=== PATIENT | female | born 1985 | race Caucasian/White ===

== ENCOUNTER 2019-07-07 10:42 | Emergency (ER) | payer BC ==
[2019-07-07 11:50] LABS: ANION GAP 11.9; CHLORIDE,CL 105 mmol/L (101-111); SODIUM,NA 138 mmol/L (135-145)
--- NOTE | 2019-07-07 12:07 | EDM.PDOC ---
Scribed by Lea Landa 07/07/19 1207 for Camilo Robles MD ED HPI GENERAL MEDICAL PROBLEM - General Chief Complaint: Cardiovascular Problem Stated Complaint: HIGH BP Time Seen by Provider: 07/07/19 11:03 Source of Information: Reports: Patient, RN, RN Notes Reviewed History Limitations: Reports: No Limitations - History of Present Illness INITIAL COMMENTS - FREE TEXT/NARRATIVE: Patient presents to ER by POV stating she has chest heaviness and burning and at times heart is racing. She has history of elevated blood pressure. 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 Onset Date: 07/06/19 Duration: Constant Location: Reports: Generalized Quality: Reports: Ache Severity: Mild Improves with: Reports: None Worsens with: Reports: None Associated Symptoms: Reports: No Other Symptoms - Related Data Allergies Allergy/AdvReac Type Severity Reaction Status Date / Time Sulfa (Sulfonamide Allergy Hives Verified 07/07/19 10:50 Antibiotics) Home Meds: Home Meds . [No Known Home Meds] 07/07/19 [History] ED ROS GENERAL - Review of Systems Review Of Systems: Comprehensive ROS is negative, except as noted in HPI. ED EXAM, GENERAL - Physical Exam Exam: See Below Exam Limited By: No Limitations General Appearance: Alert, WD/WN, No Apparent Distress Eye Exam: Bilateral Eye: Normal Inspection Nose: Normal Inspection, Normal Mucosa, No Blood Throat/Mouth: Normal Inspection, Normal Lips, Normal Voice, No Airway Compromise Head: Atraumatic, Normocephalic Neck: Normal Inspection, Supple, Non-Tender, Full Range of Motion Respiratory/Chest: No Respiratory Distress, Lungs Clear, Normal Breath Sounds, No Accessory Muscle Use, Chest Non-Tender Cardiovascular: Normal Peripheral Pulses, Regular Rate, Rhythm, No Edema, No Gallop, No JVD, No Murmur, No Rub, Tachycardia GI/Abdominal: Normal Bowel Sounds, Soft, Non-Tender, No Organomegaly, No Distention, No Abnormal Bruit, No Mass (Female) Exam: Deferred Rectal (Female) Exam: Deferred Back Exam: Normal Inspection, Full Range of Motion, NT Extremities: Normal Inspection, Normal Range of Motion, Non-Tender, Normal Capillary Refill, No Pedal Edema Neurological: Alert, Oriented, CN II-XII Intact, Normal Cognition, Normal Gait, No Motor/Sensory Deficits Psychiatric: Normal Affect, Anxious Skin Exam: Warm, Dry, Intact, Normal Color, No Rash EKG INTERPRETATION EKG Date: 07/07/19 Time: 11:23 Rhythm: Other (sinus tachycardia) Rate (Beats/Min): 101 [place]: Normal P-Wave: Present QRS: Normal ST-T: Other (nonspecific T abnormality, anterior leads.) QT: Normal Comparison: NA - No Prior EKG Course - Vital Signs Last Recorded V/S: Last Vital Signs Temp 98.7 F 07/07/19 10:52 Pulse 120 H 07/07/19 10:52 Resp 16 07/07/19 10:52 BP 153/90 H 07/07/19 10:52 Pulse Ox 100 07/07/19 10:52 - Orders/Labs/Meds Orders: Active Orders 24 hr Category Date Time Status EKG 12 Lead [EKG Documentation Completion] [RC] STAT Care 07/07/19 11:09 Active CULTURE URINE [RM] Stat Lab 07/07/19 11:11 Received Labs: Laboratory Tests 07/07/19 07/07/19 07/07/19 Range/Units 11:11 11:19 11:19 WBC 7.9 (5.0-10.0) 10^3/uL RBC 4.84 (4.2-5.4) 10^6/uL Hgb 14.6 (12.0-16.0) g/dL Hct 42.8 (37.0-47.0) % MCV 88.4 (80-100) fL MCH 30.2 (27.0-34.0) pg MCHC 34.1 (33.0-35.0) g/dL Plt Count 279 (150-450) 10^3/uL Neut % (Auto) 72.8 (42.2-75.2) % Lymph % (Auto) 19.4 L (20.5-50.1) % [place] % (Auto) 6.4 (2-8) % Eos % (Auto) 1.3 (1.0-3.0) % Baso % (Auto) 0.1 (0.0-1.0) % Sodium 138 (135-145) mmol/L Potassium 3.9 (3.6-5.0) mmol/L Chloride 105 (101-111) mmol/L Carbon Dioxide 25.0 (21.0-31.0) mmol/L Anion Gap 11.9 BUN 8 (7-18) mg/dL Creatinine 0.7 (0.6-1.3) mg/dL Est Cr Clr Drug Dosing 108.01 mL/min Estimated GFR (MDRD) > 60 BUN/Creatinine Ratio 11.42 Glucose 107 H (74-105) mg/dL Calcium 9.8 (8.4-10.2) mg/dl Total Bilirubin 0.5 (0.2-1.0) mg/dL AST 19 (10-42) IU/L ALT 16 (10-60) IU/L Alkaline Phosphatase 56 (42-121) IU/L Troponin I < 0.02 (0.00-0.02) ng/ml Total Protein 7.6 (6.7-8.2) g/dl Albumin 4.2 (3.2-5.5) g/dl Globulin 3.4 Albumin/Globulin Ratio 1.24 Urine Color Yellow (YELLOW) Urine Appearance Clear (CLEAR) Urine pH 7.5 (5.0-9.0) Ur Specific [place] 1.015 (1.005-1.030) Urine Protein Negative (NEGATIVE) Urine Glucose (UA) Negative (NEGATIVE) Urine Ketones Negative (NEGATIVE) Urine Occult Blood Trace-lysed H (NEGATIVE) Urine Nitrite Negative (NEGATIVE) Urine Bilirubin Negative (NEGATIVE) Urine Urobilinogen 0.2 (0.2-1.0) mg/dL Ur Leukocyte Esterase Small H (NEGATIVE) Urine RBC 0-5 /HPF Urine WBC 5-10 H (0-5/HPF) /HPF Ur Epithelial Cells Many H (NOT SEEN) /HPF Urine Bacteria Few (0-FEW/HPF) /HPF Departure - Departure Time of Disposition: 12:05 Disposition: Home, Self-Care 01 Condition: Good Clinical Impression: Elevated blood pressure affecting in first trimester, antepartum, Bacterial vaginosis in Instructions: Hypertension During , [id number], Bacterial Vaginosis , [id number] Forms: ED Department Discharge Additional Instructions: Rx: Flagyl (Metronidazole 500mg Follow up in clinic for blood pressure recheck. Sepsis Event Note - Evaluation Sepsis Screening Result: No Definite Risk - Focused Exam Vital Signs: Vital Signs Temp Pulse Resp BP Pulse Ox 07/07/19 10:52 98.7 F 120 H 16 153/90 H 100 Date Exam was Performed: 07/07/19 Time Exam was Performed: 12:04 - My Orders Last 24 Hours: My Active Orders 07/07/19 11:09 EKG 12 Lead [EKG Documentation Completion] [RC] STAT 07/07/19 11:11 CULTURE URINE [RM] Stat - Assessment/Plan Last 24 Hours: My Active Orders 07/07/19 11:09 EKG 12 Lead [EKG Documentation Completion] [RC] STAT 07/07/19 11:11 CULTURE URINE [RM] Stat I have read and agree with the documentation that has been completed regarding this visit. By signing this record, I attest that the documentation was completed in my physical presence and is an accurate record of the encounter.
== END 2019-07-07 12:12 | disposition home or self-care (01) ==
LOC: DL.ED 10:42
DX: O13.1 Gestational [pregnancy-induced] hypertension without significant proteinuria, first trimester (principal); O23.591 Infection of other part of genital tract in pregnancy, first trimester; B96.89 Other specified bacterial agents as the cause of diseases classified elsewhere; Z3A.01 Less than 8 weeks gestation of pregnancy; Z88.2 Allergy status to sulfonamides
CPT/HCPCS: 36415; 80053; 81001; 84484; 85025; 87086; 93005; 99285-25

== ENCOUNTER 2020-02-13 07:38 | Inpatient (IN) | payer BC ==
[~2020-02-13 07:38] MED LIST: Acetaminophen 325 MG Tab PO PRN; Oxytocin/Normal Saline 30 UNIT/500 ML BAG IV SCH; Sodium Chloride 0.9% 10 ML Syringe FLUSH PRN
[2020-02-13] MEDS: Misoprostol 25 MCG (1/4 of 100 MCG) Tab VAG PRN ×2 (09:05→13:10)
--- NOTE | 2020-02-13 16:36 | PCM.LDHP ---
L&D History of Present Illness - General Date of Service: 02/13/20 Admit Problem/Dx: Patient Status Order with Admit Dx/Problem 02/12/20 13:32 Patient Status [ADT] Routine Admission Diagnosis/Problem Admission Diagnosis/Problem Gestational hypertension - History of Present Illness Introduction:: Patient is a at 37w0d who presents to L&D for induction of labor secondary to gestational hypertension. She has been on labetalol 300 mg BID and was just increased to an additional dose of 200 mg midday. She has otherwise had an uncomplicated . She is GBS negative. She had good care. She denies contractions, vaginal discharge, leakage of fluids, or vaginal bleeding. Baby has been active. 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: Musculoskeletal History: Reports: None Neurological History: Reports: None Psychiatric History: Reports: None Endocrine/Metabolic History: Reports: None Hematologic History: Reports: None Immunologic History: Reports: None Oncologic (Cancer) History: Reports: None Dermatologic History: Reports: None - Infectious Disease History Infectious Disease History: Reports: None - Past Surgical History Head Surgeries/Procedures: Reports: None Social & Family History - Family History Family Medical History: Noncontributory - Tobacco Use Smoking Status *Q: Never Smoker Second Hand Smoke Exposure: Yes - Caffeine Use Caffeine Use: Reports: Coffee, Soda - Recreational Drug Use Recreational Drug Use: No H&P Review of Systems - Review of Systems: Review Of Systems: See Below General: Denies: Fever, Chills, Weakness HEENT: Denies: Headaches, Visual Changes Pulmonary: Denies: Shortness of Breath, Cough Cardiovascular: Denies: Chest Pain, Palpitations, Edema, Lightheadedness Gastrointestinal: Denies: Abdominal Pain, Constipation, Diarrhea, Nausea, Vomiting Skin: Denies: Rash Neurological: Denies: Dizziness, Headache, Numbness, Weakness L&D Exam - Exam Exam: See Below - Vital Signs Vital Signs: Last Vital Signs Temp 97.8 F 02/13/20 12:29 Pulse 79 02/13/20 13:30 Resp 18 02/13/20 12:29 BP 140/78 02/13/20 13:30 Pulse Ox Weight: 245 lb - OB Specific Contraction Duration (sec): 40-60 Contraction Frequency (min): 3-5 Contraction Intensity: Mild Movement: Active Heart Tones: Present Heart Tones per Min: 145 Heart Rate (FHR) Variability: Moderate (6-25 bmp) Presentation: Vertex - Ceballos Score Ceballos Score Cervix Position: Posterior Ceballos Score Consistency: Firm Ceballos Score Effacement: 31-50% Ceballos Score Dilation: 1-2 cm Ceballos Score 's Station: -3 Ceballos Score Total: 2 - Exam General: Alert, Oriented, Cooperative HEENT: Conjunctiva Clear, Mucosa Moist & [place], Pupils Equal Neck: Supple, Trachea Midline Lungs: Clear to Auscultation, Normal Respiratory Effort Cardiovascular: Regular Rate, Regular Rhythm, Normal S1, Normal S2 GI/Abdominal Exam: Normal Bowel Sounds, Soft, Non-Tender Extremities: Non-Tender, No Pedal Edema Skin: Warm, Dry, Intact Neurological: Reflexes Equal Bilateral. No: Focal Deficit - Patient Data Lab Results Last 24 hrs: Laboratory Results - last 24 hr 02/13/20 02/13/20 02/13/20 Range/Units 07:45 08:20 08:20 WBC 9.7 (5.0-10.0) 10^3/uL RBC 4.33 (4.2-5.4) 10^6/uL Hgb 13.2 (12.0-16.0) g/dL Hct 39.0 (37.0-47.0) % MCV 90.1 (80-100) fL MCH 30.5 (27.0-34.0) pg MCHC 33.8 (33.0-35.0) g/dL Plt Count 182 D (150-450) 10^3/uL BUN 9 (7-18) mg/dL Creatinine 0.57 (0.55-1.02) mg/dL Est Cr Clr Drug Dosing 132.64 mL/min Estimated GFR (MDRD) > 60 Uric Acid 4.6 (2.6-6.0) mg/dL AST 25 (15-37) U/L ALT 40 (14-59) U/L Lactate Dehydrogenase 147 (81-234) U/L Urine Color (YELLOW) Urine Appearance (CLEAR) Urine pH (5.0-9.0) Ur Specific [place] (1.005-1.030) Urine Protein (NEGATIVE) Urine Glucose (UA) (NEGATIVE) Urine Ketones (NEGATIVE) Urine Occult Blood (NEGATIVE) Urine Nitrite (NEGATIVE) Urine Bilirubin (NEGATIVE) Urine Urobilinogen (0.2-1.0) mg/dL Ur Leukocyte Esterase (NEGATIVE) Ur Random Creatinine (No establ ref range) mg/dL U Random Total Protein (0.0-11.9) mg/dL Protein/Creatinin Ratio COVID-19 (OVIDIO) Negative (NEGATIVE) 02/13/20 02/13/20 Range/Units 08:56 08:56 WBC (5.0-10.0) 10^3/uL RBC (4.2-5.4) 10^6/uL Hgb (12.0-16.0) g/dL Hct (37.0-47.0) % MCV (80-100) fL MCH (27.0-34.0) pg MCHC (33.0-35.0) g/dL Plt Count (150-450) 10^3/uL BUN (7-18) mg/dL Creatinine (0.55-1.02) mg/dL Est Cr Clr Drug Dosing mL/min Estimated GFR (MDRD) Uric Acid (2.6-6.0) mg/dL AST (15-37) U/L ALT (14-59) U/L Lactate Dehydrogenase (81-234) U/L Urine Color Yellow (YELLOW) Urine Appearance Clear (CLEAR) Urine pH 6.5 (5.0-9.0) Ur Specific [place] 1.015 (1.005-1.030) Urine Protein Negative (NEGATIVE) Urine Glucose (UA) Negative (NEGATIVE) Urine Ketones Negative (NEGATIVE) Urine Occult Blood Negative (NEGATIVE) Urine Nitrite Negative (NEGATIVE) Urine Bilirubin Negative (NEGATIVE) Urine Urobilinogen 0.2 (0.2-1.0) mg/dL Ur Leukocyte Esterase Negative (NEGATIVE) Ur Random Creatinine 26.00 (No establ ref range) mg/dL U Random Total Protein < 6.0 (0.0-11.9) mg/dL Protein/Creatinin Ratio TNP COVID-19 (OVIDIO) (NEGATIVE) Result Diagrams: 02/13/20 08:20 02/13/20 08:20 - Problem List (1) Gestational hypertension SNOMED Code(s): 395869719 ICD Code: O13.9 - GESTATIONAL HTN W/O SIGNIFICANT PROTEINURIA, UNSP TRIMESTER Status: Acute Current Visit: Yes (2) Primiparity SNOMED Code(s): 25320705 ICD Code: Z34.00 - ENCNTR FOR SUPRVSN OF NORMAL FIRST , UNSP TRIMESTER Status: Acute Current Visit: Yes (3) Rubella non-immune status, antepartum SNOMED Code(s): 241057594 ICD Code: O99.89 - OTH DISEASES AND CONDITIONS COMPL PREG/CHLDBRTH; Z28.3 - UNDERIMMUNIZATION STATUS Status: Acute Current Visit: Yes Problem List Initiated/Reviewed/Updated: Yes Orders Last 24hrs: Active Orders 24 hr Category Date Time Status Regular Diet [DIET] Diet 02/13/20 Lunch Active Medication Orders Acetaminophen (Tylenol) 650 mg PO Q4H PRN PRN Reason: Pain/Fever Lactated Ringer's (Ringers, Lactated) 1,000 mls @ 999 mls/hr IV ASDIRECTED ALBERT Oxytocin/Sodium Chloride (Pitocin In Ns 30 Unit/500 Ml) 30 unit in 500 mls @ 2 mls/hr IV TITRATE ALBERT; Protocol Misoprostol (Cytotec) 25 mcg VAG Q4H PRN PRN Reason: cervical ripening Last Admin: 02/13/20 13:10 Dose: 25 mcg Documented by: Admin: 02/13/20 09:05 Dose: 25 mcg Documented by: DANYELL Sodium Chloride (Saline Flush) 10 ml FLUSH ASDIRECTED PRN PRN Reason: Keep Vein Open Assessment/Plan Comment:: Patient is being induced secondary to gestational hypertension. Ceballos score is 2. Risks/benefits of Cytotec induction discussed with patient. Verbal consent for Cytotec has been obtained. Patient does plan on having an intrathecal. She is GBS negative. Will start pitocin when appropriate. Intrathecal when making good cervical change. Patient in agreement with plan and updated at bedside. Ashley Thomas MD
[2020-02-13] MEDS: Lactated Ringers 1,000 ML IV SCH ×2 (18:04→22:55)
[2020-02-13] MEDS ORDERED: diphenhydrAMINE 50 MG/ML SDV IVPUSH PRN (22:44)
[2020-02-13] MEDS ORDERED: Citric Acid/Sodium Citrate Solution 30 ML Cup PO ONE (22:44)
[2020-02-13] MEDS ORDERED: ceFAZolin 2 GM in Premix Bag 1 BAG IV ONE (22:44)
[2020-02-13] MEDS ORDERED: Acetaminophen/oxyCODONE 325-5 MG Tab PO PRN (22:44)
[2020-02-13] MEDS ORDERED: Naloxone 2 MG/2 ML Syringe IVPUSH PRN (22:44)
[2020-02-13] MEDS ORDERED: Misoprostol 400 MCG (4 X 100 MCG TAB) RECTAL PRN (22:44)
[2020-02-13] MEDS ORDERED: Carboprost Tromethamine 250 MCG/1 ML Amp IM PRN (22:44)
[2020-02-13] MEDS ORDERED: ePHEDrine 50 MG/ML SDV IVPUSH PRN (22:44)
[2020-02-13] MEDS ORDERED: Measles, Mumps & Rubella Vaccine 0.5 ML SDV SUBCUT ONE (22:44)
[2020-02-13] MEDS ORDERED: Methylergonovine 0.2 MG/1 ML Amp IM PRN (22:44)
[2020-02-13] MEDS ORDERED: Ondansetron 4 MG/2 ML SDV IVPUSH PRN (22:44)
[2020-02-13] MEDS ORDERED: Tranexamic Acid 1,000 MG in Sodium Chloride 0.9% 100 ML IV PRN (22:44)
[2020-02-13] MEDS ORDERED: Oxytocin/Normal Saline 30 UNIT/500 ML BAG IV SCH (22:45)
[2020-02-13] MEDS ORDERED: Oxytocin/Normal Saline 60 UNIT/1,000 ML BAG ONE (22:55)
[2020-02-13] MEDS ORDERED: Lactated Ringers 1,000 ML IV ONE (23:30)
[2020-02-13] MEDS ORDERED: Morphine PF 1 MG/ML Amp IVPUSH ONE (23:30)
[2020-02-14] MEDS ORDERED: Ketorolac 30 MG/ML SDV IVPUSH ONE
--- NOTE | 2020-02-14 00:20 | CONS ---
SERVICE DATE: 02/13/2020 REQUESTING PHYSICIAN: Ashley Thomas, PGY-3 . REASON FOR CONSULTATION: How do I further evaluate and manage this patient with concerns with status, specifically recurrent late decelerations despite stopping Pitocin and doing other interventions? PATIENT IDENTIFICATION: Shalonda Salamanca is a 34-year-old, -0-1-0 intrauterine at 37 weeks, confirmed by 9-2/7-week ultrasound, with gestational hypertension, requiring 800 mg of labetalol per day for control, who was started on induction earlier this morning with Cytotec x2, as well as started on Pitocin thereafter, following status closely. 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 She was followed closely. When 3rd dose of Cytotec was due she did have some concerns with too many contractions over a time period and was followed closely. There was noted to be occasional late deceleration with variability that was concerning, but then did improve. She was subsequently started on Pitocin and thereafter was followed closely and had notable recurrent late decelerations with minimal variability. Pitocin was subsequently stopped. Boluses were given. Positional changes ensued and despite this, positive contraction stress test was noted. Please see previous dictation. Because of this, with concerns of nonreassuring status, positive contraction stress test, minimal variability, shared decision was made to proceed with primary low-transverse section. Records called for, reviewed as below, and supplemented by patient history. ALLERGIES: Sulfa. MEDICATIONS: 1. Labetalol 300 mg in the morning, 200 mg at noon time, and 300 mg in the evening. 2. vitamins daily. PAST MEDICAL/PAST SURGICAL HISTORY: The patient denies any previous surgeries, hospitalizations overnight. She may have suspected chronic hypertension based on review of her chart and has been followed closely. FAMILY HISTORY: Breast cancer in maternal grandmother, diabetes in mother, father, and paternal grandfather. Heart disease in her father. Hypertension in mother and father. Liver disease in mother, fatty liver. Mother had hysterectomy secondary to uterine fibroids. Father with stroke. Maternal grandfather is unknown to the patient, and paternal grandmother in her 60s had uterine cancer. Negative family history of colon cancer, ovarian cancer, anesthesia problems, or bleeding problems. SOCIAL HISTORY: The patient lives in [place] with her , Darren. They have a dog at home. 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 She denies any alcohol, tobacco, or drug use. ANTEPARTUM LABS: ABO blood type is O positive, negative antibody, rubella nonimmune, syphilis antibody is nonreactive, negative hepatitis B surface antigen. Negative HIV, GC, chlamydia. Wet prep within normal limits. One-hour GTT was 104 on 12/12/2019 and GBS was negative on 01/30/2020. REVIEW OF SYSTEMS: Quickly obtained and is otherwise notable for having contractions with her induction. Otherwise, she denies any headaches, visual changes, or upper abdominal pain currently, or other signs and symptoms of severe preeclampsia. OBJECTIVE: Vital Signs: One blood pressure at 2130 was 123/72, heart rate 68, temperature 98.3. Appearance: Female, appears stated age, acting appropriate, nontoxic appearance. HEENT: Head is atraumatic. EOMs intact. PERRLA. No scleral icterus. No sore throat. Mucous membranes are moist. Neck: No obvious tenderness. Lungs: Clear to auscultation bilaterally. No increased work of breathing. Heart: S1, S2. Regular rate and rhythm. Abdomen: Gravid. Dillon's indeterminate. Nontender, nondistended. Bowel sounds positive. No organomegaly, pulsatile masses, or hernias. No rebound, rigidity, or guarding. Genitourinary and Rectal: Deferred. Extremities: Trace pedal edema. Deep tendon reflexes 2/4 bilaterally and symmetric in lower extremities. Psychiatric: Mood and affect congruent. Judgment and insight intact. Skin: No cyanosis, clubbing, or jaundice. heart tones with minimal variability with some late decelerations at current time of dictation, with heart tone baseline around the 140s. Tocometer reveals contractions every 1-1/2 to 3 minutes. Pitocin has been stopped. Position changes ensued and boluses have been given. INVESTIGATIONS: Earlier this morning white cell count 9.7, hemoglobin 13.2, platelets 182. HELLP labs essentially within normal limits. Urine protein to creatinine ratio was unable to determine due to the low amount of protein in her urine. Rapid COVID test was negative. Pending is a type and screen. ASSESSMENT AND PLAN: 1. Intrauterine at 37 weeks, confirmed with 9-/7-week ultrasound. 2. Nonreassuring status as evidenced by minimal variability, positive contraction stress test despite multiple interventions. 3. Positive contraction stress test. 4. Gestational hypertension, on medications, currently controlled. 5. Status post Cytotec x2 and attempts for Pitocin augmentation which now have been stopped. 6. Rubella nonimmune. 7. Group B Streptococcus negative. 8. G2, P0-0-1-0. PLAN: I did discuss with patient as well as Dr. Thomas and patient's male partner concerns of status, shared decision was made to proceed with primary low-transverse section. Did discuss with them risks, benefits, alternatives, and complications of which include, but not limited to infection; bleeding; damage to internal organs such as bowel, bladder, tubes, uterus, ovaries, and sometimes fetus; rarely needing a blood transfusion or further surgery; and even rare maternal or . She understands, agrees, and wishes to proceed. Verbal and written consents were obtained and questions were answered. We will proceed to the OR as soon as crew is ready and available. Dr. Thomas, thank you for allowing me to partake in the care of this patient in consultation. [facility] /[id number]
--- NOTE | 2020-02-14 00:56 | OBOUT ---
DATE: 02/13/2020 TIME: 2234 to 2244 REASON FOR CONTRACTION STRESS TEST: 1. Intrauterine , 37 weeks, confirmed by 9-2/7 week ultrasound. 2. Concerns with nonreassuring status. 3. Gestational hypertension, on meds. 4. Status post Cytotec x2 and Pitocin augmentation with Pitocin stopped due to concerns with status. 5. Rubella nonimmune. 6. GBS negative. 7. G2, P0-0-1-0. CONTRACTION STRESS TEST: During this time period, there are approximately 5 contractions, and with 4 of them, there are late decelerations with minimal variability. ASSESSMENT: Positive contraction stress test with concerns prior for nonreassuring status. PLAN: Due to the contraction test being positive as well as nonreassuring status and minimal variability with this contraction stress test, I am concerned with intolerance to labor as well as status and have discussed the case with Dr. Thomas, who is her primary OB provider and shared decision made to proceed with primary low transverse . I did discuss this with the patient and her male partner. Did discuss with him risks, benefits, alternatives, and complications of , including but not limited to, infection, bleeding, damage to organs such as bowel, bladder, tubes, uterus, ovaries, and sometimes fetus, rarely needing a blood transfusion or further surgery and rare maternal or . She understands, agrees, and wishes to proceed. Verbal and written consents were obtained. Questions were answered. We will proceed to the OR as soon as crew is ready and available. Please see orders for further details as well. [facility] /[id number]
[2020-02-14] MEDS: Lactated Ringers 1,000 ML IV SCH ×2 (04:02→12:23)
[2020-02-14] MEDS: Ketorolac 30 MG/ML SDV IVPUSH SCH ×3 (07:20→17:31)
[2020-02-14] MEDS: Docusate Sodium 100 MG Cap PO PRN (08:21)
[2020-02-14] MEDS: Prenatal Multivitamin with Calcium/Folic Acid/Iron Tab PO SCH (08:21)
[2020-02-14] MEDS: Simethicone 80 MG Tab.Chew PO SCH ×4 (08:21→20:20)
--- NOTE | 2020-02-14 09:53 | OR ---
DATE: 02/13/2020 PREOPERATIVE DIAGNOSES: 1. Intrauterine at 37 weeks, confirmed by 9-2/7-week ultrasound. 2. Nonreassuring status. 3. Positive contraction stress test. 4. Gestational hypertension, on medications. 5. Status post Cytotec x2 and Pitocin augmentation, now stopped. 6. Rubella nonimmune. 7. Group B Streptococcus negative. 8. G2, P0-0-1-0. POSTOPERATIVE DIAGNOSES: 1. Intrauterine at 37 weeks, confirmed by 9-2/7-week ultrasound - delivered. 2. Nonreassuring status. 3. Positive contraction stress test. 4. Gestational hypertension, on medications. 5. Status post Cytotec x2 and Pitocin augmentation, now stopped. 6. Rubella nonimmune. 7. Group B Streptococcus negative. 8. G2, P0-0-1-0. PROCEDURE PERFORMED: Contraction stress test, followed by primary low- transverse with 2-layer uterine closure. BANDSAW OPERATOR: Ashley Willis MD. ANESTHESIA: Spinal. ESTIMATED BLOOD LOSS: 600 mL. IV FLUID: 1000 mL. URINE OUTPUT: 200 mL and clear yellow. START: 2339. UTERINE INCISION: 2340. DELIVERY: 2341. STOP: 2357. FINDINGS: Female, score 9 and 9, weight pending. DESCRIPTION OF PROCEDURE IN DETAIL: After proper consent was obtained, patient was brought to the operating room, where spinal anesthetic was administered. Maria was placed in the preop under sterile conditions. Abdomen was prepped and draped in normal sterile fashion with patient placed in supine position with left lateral tilt. Skin incision was then made over lower abdomen in a transverse Pfannenstiel-type fashion. This was carried down to the fascia and scored in the midline. Subcutaneous tissue was raked laterally with Griggs retractor, and fascial incision was extended in transverse fashion using curved Garcia's. Branden clamps x2 were used to grasp the superior aspect of the fascia and rectus muscles dissected from the fascia using sharp and blunt technique. In a similar fashion, Branden clamps x2 were used to grasp the inferior portion of the incision, and rectus and pyramidalis muscles were dissected from the fascia using sharp and blunt technique. Rectus muscles were in the midline with blunt technique. Abdominal cavity was entered in blunt technique. Incision was extended superiorly and inferiorly with blunt technique. Adan O large retractor was then introduced and used. Vesicouterine peritoneum was identified, incised in transverse fashion with Metzenbaum scissors and a bladder flap was made digitally. Curvilinear incision was made on the lower uterine segment at 2341 hours. Uterus was entered sharply. Clear fluid returned. Uterine incision was then extended in transverse fashion using blunt technique. vertex was then brought through the incision, followed by the rest of the infant without difficulty. Mouth and nares were suctioned. Cord was doubly clamped and cut and was brought over to team. Then, approximately 10 mL of cord blood was obtained for labs. Placenta then delivered with gentle cord traction and fundal massage. Uterine cavity was then cleared of all blood clots and debris with lap sponge. Astorga clamps were used to grasp the uterine incision. This was closed in a running locked fashion and tied at lateral margins with 1-0 Vicryl. Second imbricating layer was applied and tied at lateral margins. First inspection of the uterine incision revealed hemostasis. Adan O retractor was then removed and paracolic gutters were then cleared of all blood clots and debris with lap sponge. Anterior cul-de-sac was irrigated copiously and all blood clots and debris removed. Second and final inspection of the uterine incision and anterior cul-de-sac revealed hemostasis. Rectus muscles were then reapproximated in midline with [id number] stitch of 1-0 Vicryl. Subfascial tissues were found to be hemostatic and fascia was closed in a running fashion and tied at lateral margins with 0 looped PDS. Subcutaneous tissue was irrigated copiously. Hemostasis was reassured. Skin was reapproximated with medium panchito and sterile Aquacel dressing applied. Uterine fundus was firm and massaged at the conclusion of the case -2 below umbilicus. No immediate complications were noted. Sponge, lap, and needle counts were correct. The patient received 2 g of Ancef preoperatively, Pitocin per protocol, and will receive Toradol at the conclusion of the case for pain control. Mother and are currently stable at the time of dictation. [facility] /[id number] SHARRI
[2020-02-14] MEDS ORDERED: Oxytocin/Normal Saline 30 UNIT/500 ML BAG IV ONE (14:10)
--- NOTE | 2020-02-14 16:38 | PCM.SN.2 ---
- Free Text/Narrative Note: 02/13/20 Patient is a with gestational hypertension who is undergoing induction of labor. She received 2 doses of Cytotec. Her contraction pattern shows contraction frequency of 1-1.5 per minute. Baby had minimal variability and occasional variable decels and along with 2-3 late decels. We were unable to place another dose of cytotec with strip pattern. Her cervix remained unchanged. After almost 2 hours with minimal improvement in baby's strip, decision was made to proceed with contraction stress test. Pitocin was started at 1 milliunit. Baby continued to have minimal variability and eventually developed recurrent late decels that persisted despite discontinuation of pitocin. Dr. Watson was consulted and after discussion with patient, decision was made to proceed with primary . See his notes for further details. Ashley Thomas MD
--- NOTE | 2020-02-14 16:47 | PCM.PNPP ---
- General Info Date of Service: 02/14/20 Subjective Update: Patient is POD1 from her primary . She reports her lochia is mild. She is . She has good pain control. He rascon has not been removed and she has not been out of bed yet. She is starting to advance her diet and tolerating it well. She has no concerns about her incision. No acute events since delivery. Rascon catheter is still in place. Functional Status: Reports: Pain Controlled - Review of Systems General: Reports: Chills. Denies: Fever, Weakness HEENT: Denies: Headaches, Visual Changes Pulmonary: Denies: Shortness of Breath Cardiovascular: Denies: Chest Pain Gastrointestinal: Denies: Abdominal Pain, Nausea, Vomiting Skin: Denies: Rash Neurological: Denies: Dizziness, Headache, Numbness - Patient Data Vital Signs - Most Recent: Last Vital Signs Temp 98.9 F 02/14/20 12:00 Pulse 80 02/14/20 12:00 Resp 18 02/14/20 12:00 BP 110/65 02/14/20 12:00 Pulse Ox 96 02/14/20 12:00 Weight - Most Recent: 245 lb I&O - Last 24 Hours: Intake & Output 02/14/20 02/14/20 02/14/20 06:59 14:59 22:59 Intake Total 3125 Output Total 280 1050 400 Balance 2845 -1050 -400 Lab Results - Last 24 Hours: Laboratory Results - last 24 hr 02/13/20 02/14/20 Range/Units 08:20 05:45 WBC 12.3 H (5.0-10.0) 10^3/uL RBC 3.84 L (4.2-5.4) 10^6/uL Hgb 11.6 L D (12.0-16.0) g/dL Hct 35.3 L (37.0-47.0) % MCV 91.9 (80-100) fL MCH 30.2 (27.0-34.0) pg MCHC 32.9 L (33.0-35.0) g/dL Plt Count 180 (150-450) 10^3/uL Blood Type O POSITIVE Gel Antibody Screen Negative Med Orders - Current: Current Medications Acetaminophen (Tylenol) 650 mg PO Q4H PRN PRN Reason: Pain/Fever Carboprost Tromethamine (Hemabate Ds) 250 mcg IM ONETIME PRN PRN Reason: Bleeding Diphenhydramine HCl (Benadryl) 25 mg IVPUSH Q6H PRN PRN Reason: Itching or Nausea Docusate Sodium (Colace) 100 mg PO Q12H PRN PRN Reason: Constipation Last Admin: 02/14/20 08:21 Dose: 100 mg Documented by: Ephedrine Sulfate (Ephedrine Sulfate) 5 mg IVPUSH SEECOMMENT PRN PRN Reason: Other Lactated Ringer's (Ringers, Lactated) 1,000 mls @ 999 mls/hr IV ASDIRECTED [facility] Last Admin: 02/13/20 22:55 Dose: 999 mls/hr Documented by: Oxytocin/Sodium Chloride (Pitocin In Ns 30 Unit/500 Ml) 30 unit in 500 mls @ 500 mls/hr IV TITRATE [facility]; Protocol Last Titration: 02/14/20 02:40 Dose: 0 munits/min, 0 mls/hr Documented by: Lactated Ringer's (Ringers, Lactated) 1,000 mls @ 125 mls/hr IV ASDIRECTED [facility] Last Admin: 02/14/20 12:23 Dose: 125 mls/hr Documented by: Tranexamic Acid 1,000 mg/ (Sodium Chloride) 110 mls @ 660 mls/hr IV ONETIME PRN PRN Reason: Bleeding Ibuprofen (Motrin) 800 mg PO Q8H PRN PRN Reason: mild pain or fever Ketorolac Tromethamine (Toradol) 15 mg IVPUSH Q6H [facility] Stop: 02/14/20 18:01 Last Admin: 02/14/20 12:14 Dose: 15 mg Documented by: Methylergonovine Maleate (Methergine) 0.2 mg IM ONETIME PRN PRN Reason: Excessive Vaginal Bleeding Misoprostol (Cytotec) 800 mcg RECTAL ASDIRECTED PRN PRN Reason: Excessive bleeding Naloxone HCl (Narcan) 0.1 mg IVPUSH SEECOMMENT PRN PRN Reason: Respiratory Depression Ondansetron HCl (Zofran) 4 mg IVPUSH Q4H PRN PRN Reason: Nausea/Vomiting Oxycodone/Acetaminophen (Percocet 325-5 Mg) 1 tab PO Q4H PRN PRN Reason: Pain (moderate 4-6) Oxycodone/Acetaminophen (Percocet 325-5 Mg) 2 tab PO Q4H PRN PRN Reason: Pain (moderate 4-6) Prenat Multivit/[place]/Iron/Folic Ac ( Plus Iron) 1 each PO DAILY [facility] Last Admin: 02/14/20 08:21 Dose: 1 each Documented by: Simethicone (Simethicone) 160 mg PO QID [facility] Last Admin: 02/14/20 12:14 Dose: 160 mg Documented by: Sodium Chloride (Saline Flush) 10 ml FLUSH ASDIRECTED PRN PRN Reason: Keep Vein Open Discontinued Medications Citric Acid/Sodium Citrate (Bicitra Solution) 30 ml PO ONETIME ONE Stop: 02/13/20 22:45 Last Admin: 02/13/20 23:03 Dose: 30 ml Documented by: Oxytocin/Sodium Chloride (Pitocin In Ns 30 Unit/500 Ml) 30 unit in 500 mls @ 1 mls/hr IV TITRATE [facility]; Protocol Last Titration: 02/13/20 21:20 Dose: 0 munits/min, 0 mls/hr Documented by: Cefazolin Sodium/Dextrose 2 gm (/ Premix) 50 mls @ 100 mls/hr IV ONETIME ONE Stop: 02/13/20 23:13 Last Admin: 02/13/20 23:20 Dose: 100 mls/hr Documented by: Oxytocin/Sodium Chloride (Pitocin In Ns 30 Unit/500 Ml) Confirm Administered Dose 60 unit in 1,000 mls @ as directed .ROUTE .STK-MED ONE Stop: 02/13/20 22:56 Oxytocin/Sodium Chloride (Pitocin In Ns 30 Unit/500 Ml) 30 unit in 500 mls @ as directed IV .STK-MED ONE Stop: 02/14/20 14:11 Measles/Mumps/Rubella Vaccine Live (M-M-R Ii Vaccine) 0.5 ml SUBCUT .ONCE ONE Stop: 02/13/20 22:45 Last Admin: 02/14/20 12:16 Dose: 0.5 ml Documented by: Misoprostol (Cytotec) 25 mcg VAG Q4H PRN PRN Reason: cervical ripening Last Admin: 02/13/20 13:10 Dose: 25 mcg Documented by: - Infant Interaction Support Person: - Recovery Exam Fundal Tone: Firm Fundal Level: At Umbilicus Fundal Placement: Midline Lochia Amount: Scant Lochia Color: Rubra/Red Perineum Description: Intact, Minimal Bruising/Swelling Episiotomy/Laceration: None Bladder Status: Indwelling Catheter in Place Urinary Elimination: Indwelling Catheter - Exam General: Alert, Oriented, Cooperative, No Acute Distress HEENT: Mucous Membr. Moist/[place] Neck: Supple Lungs: Clear to Auscultation, Normal Respiratory Effort Cardiovascular: Regular Rate, Regular Rhythm GI/Abdominal Exam: Soft, No Distention Extremities: Normal Inspection, Normal Range of Motion, Non-Tender, No Pedal Edema Skin: Warm, Dry, Intact Wound/Incisions: Dressing Dry and Intact, No Drainage. No: Erythema Neurological: No New Focal Deficit - Problem List & Annotations (1) Gestational hypertension SNOMED Code(s): 837816179 Code(s): O13.9 - GESTATIONAL HTN W/O SIGNIFICANT PROTEINURIA, UNSP TRIMESTER Status: Acute Current Visit: Yes (2) Primiparity SNOMED Code(s): 64939558 Code(s): Z34.00 - ENCNTR FOR SUPRVSN OF NORMAL FIRST , UNSP TRIMESTER Status: Acute Current Visit: Yes (3) Rubella non-immune status, antepartum SNOMED Code(s): 451294593 Code(s): O99.89 - OTH DISEASES AND CONDITIONS COMPL PREG/CHLDBRTH; Z28.3 - UNDERIMMUNIZATION STATUS Status: Acute Current Visit: Yes (4) delivery delivered SNOMED Code(s): 341842830 Code(s): O82 - ENCOUNTER FOR DELIVERY WITHOUT INDICATION Status: Acute Current Visit: Yes - Problem List Review Problem List Initiated/Reviewed/Updated: Yes - Plan Plan:: Encourage ambulation. Discontinue IV with good oral intake. Discontinue rascon when up and moving around without difficulty. Pain has been well controlled. Blood pressures remain normal. Will hold all blood pressure medications for now. Will continue to monitor closely. Anticipate discharge on post op day 3. Dr. Watson will be rounding over the weekend. Will see in clinic for staple removal and 6 week post visit. Ashley Thomas MD
[2020-02-14] MEDS: Acetaminophen/oxyCODONE 325-5 MG Tab PO PRN (22:46)
[2020-02-15] MEDS: Acetaminophen/oxyCODONE 325-5 MG Tab PO PRN ×4 (04:31→21:50)
[2020-02-15] MEDS: Simethicone 80 MG Tab.Chew PO SCH ×4 (08:57→21:02)
[2020-02-15] MEDS: Docusate Sodium 100 MG Cap PO PRN (08:58)
[2020-02-15] MEDS: Prenatal Multivitamin with Calcium/Folic Acid/Iron Tab PO SCH (08:58)
[2020-02-15] MEDS: Ibuprofen 800 MG Tab PO PRN ×2 (08:58→16:41)
--- NOTE | 2020-02-15 14:36 | PN ---
DATE: 02/15/2020 Postoperative day #2. SUBJECTIVE: The patient is tolerating p.o., was ambulating, urinating, passing flatus. Continues to work on breast feeding. OBJECTIVE: Vital Signs: Temperature 97.3, heart rate 78, blood pressure 118/64, respiratory rate 16. Lungs: Clear to auscultation bilaterally. Heart: S1 and S2. Regular rate and rhythm. Abdomen: Firm uterus. -2 below umbilicus. Aquacel dressing dry and intact. Extremities: Trace pedal edema. No calf pain. LABORATORY DATA: Done on postop day #1, did reveal a hemoglobin drop from 13.2 down to 11.6. ASSESSMENT AND PLAN: 1. Postop day #2, status post primary low transverse with 2-layer uterine closure for nonreassuring status. 2. Mild anemia related to anemia of acute blood loss. At this point in time, we will continue on vitamins and follow closely. No symptoms are elicited. PLAN: Did discuss with the patient potential for discharge tomorrow. We will continue to follow clinically and closely. [facility] /[id number]
[2020-02-16] MEDS: Ibuprofen 800 MG Tab PO PRN (01:38)
[2020-02-16] MEDS: Acetaminophen/oxyCODONE 325-5 MG Tab PO PRN (06:20)
[2020-02-16] MEDS: Simethicone 80 MG Tab.Chew PO SCH (08:57)
[2020-02-16] MEDS: Prenatal Multivitamin with Calcium/Folic Acid/Iron Tab PO SCH (08:57)
[2020-02-16] MEDS: Docusate Sodium 100 MG Cap PO PRN (08:57)
--- NOTE | 2020-02-16 12:45 | DISCH ---
ADMIT DIAGNOSES: 1. Intrauterine at 37 weeks, confirmed with 9 and 2/7 weeks ultrasound. 2. Gestational hypertension, on meds. 3. Rubella nonimmune. 4. Group B Streptococcus negative. 5. G2, P0-0-1-0. DISCHARGE DIAGNOSES: 1. Intrauterine at 37 weeks, confirmed with 9 and 2/7 weeks ultrasound. 2. Gestational hypertension, on meds. 3. Rubella nonimmune. 4. Group B Streptococcus negative. 5. G2, P0-0-1-0. 6. Nonreassuring status. 7. Positive contraction stress test. PROCEDURE PERFORMED: Cytotec x2 followed by Pitocin augmentation per Ashley Thomas MD and then subsequent primary low transverse with 2-layer uterine closure per Dr. Watson with contraction stress test per Dr. Watson. SUMMARY OF HOSPITAL COURSE: The patient was admitted on the above date with the above diagnosis. Due to her gestational hypertension, was induced, given Cytotec x2 and Pitocin augmentation. During this, there were noted to be some concerns with status. Meds were stopped, fluid boluses were given as well as positional changes, and there was some increase in variability. Subsequently, Pitocin augmentation was started and the patient had some minimal variability with late decelerations. This was stopped, and despite this, had a positive contraction stress test, and due to the nonreassuring status, underwent a primary low transverse with 2-layer uterine closure under spinal anesthesia with an EBL of 600 mL on late evening of 02/13/2020 yielding a female, score of 9 and 9, weighing 6 pounds 10 ounces. Please see op report for further details. Postop day #1, please see progress note. Postop day #2, please see progress note. Postop day #3, date of discharge, the patient was tolerating p.o., was ambulating, urinating, passing flatus, and requesting discharge. PHYSICAL EXAMINATION: Vital Signs: Last set of vitals; temp 98.1, heart rate 78, blood pressure 120/74, respiratory rate 14. Lungs: Clear to auscultation bilaterally. Heart: S1, S2. Regular rate and rhythm. Abdomen: Firm uterus, -2 below the umbilicus. Aquacel dressing dry and intact. Extremities: Trace pedal edema. No calf pain. LABORATORY DATA: Postop day #1, hemoglobin dropped from 13.2 to 11.6. CONDITION ON DISCHARGE COMPARED TO CONDITION ON ADMISSION: Improved. DISCHARGE INSTRUCTIONS: 1. Diet as tolerated. 2. Activity: No lifting more than 20 pounds. No sit-ups or straining. Pelvic rest for next 6 weeks with immediate return to fertility discussed with the patient. 3. Reasons to return or go to the emergency room were discussed with the patient in detail including, but not limited to temperature greater than 100.4, foul-smelling discharge, red hot tender breasts, or increased vaginal bleeding, or increasing pain, drainage, or redness around the incision. DISCHARGE MEDICATIONS: [id number] ibuprofen for pain, vitamins x6 weeks, and Percocet 5/325, 1 to 2 q.6 hours p.r.n. #30, no refills, and Colace 100 mg b.i.d. p.r.n. #60, no refills. Discussed the use of medications, adverse side effects, as well as precautions with driving. FOLLOWUP: Follow up on 02/18/2020 with her baby for staple removal. She is to call the clinic for this and Dr. Watson will gladly see her. Please see discharge paperwork for further details as well. [facility] /[id number]
== END 2020-02-16 11:50 | disposition home or self-care (01) | DRG 540 ==
LOC: DL.OBCHECK 07:38 → DL.OB 10:12 → OBSVTOIN 23:42 → DL.OB 23:42
PROVIDERS: ADMIT Family Medicine; ATTEND Family Medicine
PROC: 10D00Z1 Extraction of Products of Conception, Low, Open Approach (ICD-10-PCS; principal; 2020-02-13)
PROC: 10907ZC Drainage of Amniotic Fluid, Therapeutic from Products of Conception, Via Natural or Artificial Opening (ICD-10-PCS; 2020-02-13)
PROC: 3E0P7VZ Introduction of Hormone into Female Reproductive, Via Natural or Artificial Opening (ICD-10-PCS; 2020-02-13)
PROC: 4A1HXCZ Monitoring of Products of Conception, Cardiac Rate, External Approach (ICD-10-PCS; 2020-02-13)
DX: O13.4 Gestational [pregnancy-induced] hypertension without significant proteinuria, complicating childbirth (principal); Z3A.37 37 weeks gestation of pregnancy; Z37.0 Single live birth; O76 Abnormality in fetal heart rate and rhythm complicating labor and delivery; O90.81 Anemia of the puerperium; D62 Acute posthemorrhagic anemia; Z88.2 Allergy status to sulfonamides; Z20.828 Contact with and (suspected) exposure to other viral communicable diseases
CPT/HCPCS: 01961; 36415; 59025; 81003; 82565; 82570; 83615; 84156; 84450; 84460; 84520; 84550; 85027; 86850; 86900; 86901; 90471; 90707; A9270-GY; J0690; J1885; J2274; J2590; J7120; U0002

== ENCOUNTER 2020-12-21 20:21 | Emergency (ER) | payer BC | END 2020-12-21 20:30 | LOC: DL.ED 20:21 | DX: Z53.8 Procedure and treatment not carried out for other reasons (principal) ==

== ENCOUNTER 2022-01-18 13:00 | Inpatient (IN) | payer BC ==
[2022-01-18] MEDS ORDERED: Oxytocin/Normal Saline 30 UNIT/500 ML BAG IV ONE (13:24)
[2022-01-18] MEDS: Lactated Ringers 1,000 ML IV ONE ×2 (13:30→15:29)
[2022-01-18] MEDS ORDERED: Oxytocin 10 Units/1 ML SDV IM PRN (13:36)
[2022-01-18] MEDS ORDERED: ceFAZolin 2 GM in Premix Bag 1 BAG IV ONE (13:36)
[2022-01-18] MEDS ORDERED: Tranexamic Acid 1,000 MG in Sodium Chloride 0.9% 100 ML IV PRN ×2 (13:36→16:56)
[2022-01-18] MEDS ORDERED: Sodium Chloride 0.9% 10 ML Syringe FLUSH PRN (13:36)
[2022-01-18] MEDS ORDERED: Carboprost Tromethamine 250 MCG/1 ML Amp IM PRN ×2 (13:36→16:56)
[2022-01-18] MEDS ORDERED: Citric Acid/Sodium Citrate Solution 30 ML Cup PO ONE (13:36)
[2022-01-18] MEDS ORDERED: Labetalol 20 MG/4 ML Syringe IVPUSH ONE (13:40)
[2022-01-18] MEDS ORDERED: Lactated Ringers 1,000 ML IV SCH (13:45)
[2022-01-18] MEDS ORDERED: Oxytocin/Normal Saline 30 UNIT/500 ML BAG IV SCH (13:45)
[2022-01-18 14:08] LABS: ESTIMATED GFR 101 mL/min (>=60)
[2022-01-18] MEDS ORDERED: diphenhydrAMINE 50 MG/ML SDV IVPUSH PRN (16:56)
[2022-01-18] MEDS ORDERED: Methylergonovine 0.2 MG/1 ML Amp IM PRN (16:56)
[2022-01-18] MEDS ORDERED: Ondansetron 4 MG/2 ML SDV IVPUSH PRN (16:56)
[2022-01-18] MEDS ORDERED: Misoprostol 400 MCG (4 X 100 MCG TAB) RECTAL PRN (16:56)
[2022-01-18] MEDS ORDERED: ePHEDrine 50 MG/ML SDV IVPUSH PRN (16:56)
[2022-01-18] MEDS ORDERED: Naloxone 2 MG/2 ML Syringe IVPUSH PRN (16:56)
[2022-01-18] MEDS ORDERED: Acetaminophen/oxyCODONE 325-5 MG Tab PO PRN (16:56)
[2022-01-18] MEDS ORDERED: Acetaminophen 325 MG Tab PO PRN (16:56)
[2022-01-18] MEDS ORDERED: Ketorolac 30 MG/ML SDV IVPUSH SCH (17:00)
[2022-01-18] MEDS: Simethicone 80 MG Tab.Chew PO SCH ×2 (18:06→22:33)
[2022-01-18] MEDS: Lactated Ringers 1,000 ML IV SCH (20:15)
[2022-01-18] MEDS: Sodium Chloride 0.9% 10 ML Syringe FLUSH SCH (22:09)
[2022-01-18] MEDS: Ketorolac 30 MG/ML SDV IVPUSH SCH (22:33)
[2022-01-19] MEDS: Lactated Ringers 1,000 ML IV SCH (04:14)
[2022-01-19] MEDS: Acetaminophen/oxyCODONE 325-5 MG Tab PO PRN ×4 (05:33→21:09)
[2022-01-19] MEDS: Ketorolac 30 MG/ML SDV IVPUSH SCH ×2 (05:33→10:59)
[2022-01-19] MEDS: Prenatal Multivitamin with Calcium/Folic Acid/Iron Tab PO SCH (08:55)
[2022-01-19] MEDS: Docusate Sodium 100 MG Cap PO PRN ×2 (08:55→19:10)
[2022-01-19] MEDS: Simethicone 80 MG Tab.Chew PO SCH ×4 (08:55→21:09)
[2022-01-19] MEDS: Sodium Chloride 0.9% 10 ML Syringe FLUSH SCH ×2 (11:31→21:11)
[2022-01-19] MEDS: Ibuprofen 800 MG Tab PO PRN (19:10)
[2022-01-20] MEDS: Acetaminophen/oxyCODONE 325-5 MG Tab PO PRN ×3 (02:00→12:01)
[2022-01-20] MEDS: Ibuprofen 800 MG Tab PO PRN (05:49)
[2022-01-20] MEDS: Docusate Sodium 100 MG Cap PO PRN (08:07)
[2022-01-20] MEDS: Prenatal Multivitamin with Calcium/Folic Acid/Iron Tab PO SCH (08:07)
[2022-01-20] MEDS: Simethicone 80 MG Tab.Chew PO SCH ×2 (08:07→12:01)
[2022-01-20] MEDS ORDERED: Lactated Ringers 1,000 ML IV ONE (13:24)
[2022-01-20] MEDS ORDERED: Neostigmine Methylsulfate 10 MG/10 ML MDV IV ONE (13:24)
[2022-01-20] MEDS ORDERED: Ondansetron 4 MG/2 ML SDV IV ONE (13:24)
[2022-01-20] MEDS ORDERED: Dexamethasone 4 MG/ML SDV IV ONE (13:24)
[2022-01-20] MEDS ORDERED: Ketorolac 30 MG/ML SDV IVPUSH ONE (13:24)
== END 2022-01-20 13:25 | disposition home or self-care (01) | DRG 540 ==
LOC: DL.OBCHECK 13:00 → DL.OB 13:36 → UNDOADMOB 13:42 → DL.OB 13:42 → OBSVTOIN 16:16 → DL.OB 16:16
PROVIDERS: ADMIT Family Medicine; ATTEND Family Medicine
PROC: 10D00Z1 Extraction of Products of Conception, Low, Open Approach (ICD-10-PCS; principal; 2022-01-18)
DX: O11.4 Pre-existing hypertension with pre-eclampsia, complicating childbirth (principal); Z3A.39 39 weeks gestation of pregnancy; Z37.0 Single live birth; O34.211 Maternal care for low transverse scar from previous cesarean delivery; O99.02 Anemia complicating childbirth; D64.9 Anemia, unspecified; Z20.822 Contact with and (suspected) exposure to COVID-19
CPT/HCPCS: 01961; 36415; 59025; 81003; 82565; 82570; 83615; 84156; 84450; 84460; 84520; 84550; 85027; 86850; 86900; 86901; 94010; A9270-GY; J0690; J1100; J1885; J2405; J2590; J2710; J3490; J7120; U0002

== ENCOUNTER 2022-01-24 19:49 | Emergency (ER) | payer BC ==
[2022-01-24 22:09] LABS: ANION GAP 13.4 mEq/L (7-13)
== END 2022-01-24 22:32 | disposition home or self-care (01) ==
LOC: DL.ED 19:49
DX: I10 Essential (primary) hypertension (principal); Z88.2 Allergy status to sulfonamides
CPT/HCPCS: 36415; 80053; 85025; 99283